=== PATIENT | female | born 1965 | race Two or more races ===

== ENCOUNTER 2016-09-18 06:46 | Inpatient (IN) | payer MEDICAID, OTHER ==
[~2016-09-18] VITALS: Ht 157.5 cm; Wt 80.1 kg
[2016-09-18 07:24] LABS: Basophils # (auto) 0 uL; Basophils % (auto) 0.6 % (0.0-2.0); Eosinophils # (auto) 0.2 uL; Eosinophils % (auto) 2.3 % (0.0-7.0); Hematocrit 43.2 % (36.0-46.0); Hemoglobin 14.5 g/dL (12.2-16.2); Lymphocytes # (auto) 1.7 uL; Lymphocytes % (auto) 23.2 % (10.0-50.0); Mean Corpuscular Hgb Conc. 33.6 g/dL (32.0-36.0); Mean Corpuscular Volume 89.5 fL (80.0-100.0); Mean Platelet Volume 8.1 fL (7.4-10.4); Monocytes # (auto) 0.3 uL; Monocytes % (auto) 4.2 % (0.0-12.0); Neutrophils # (auto) 5.2 uL; Neutrophils % (auto) 69.7 % (37.0-80.0); Platelet Count (auto) 279 10^3/uL (140-450); White Blood Cell 7.5 10^3/uL (4.4-10.8)
[2016-09-18 07:45] LABS: Albumin 3.8 g/dL (3.4-5.0); BUN/Creatinine Ratio 16.3; Blood Urea Nitrogen 16 mg/dL (7-18); Chloride 106 mmol/L (98-107); GFR African American 77 mL/min; GFR Non-African American 63 mL/min; Glucose 109 mg/dL (74-106); Magnesium 2.1 mg/dL (1.6-2.6); Potassium 3.8 mmol/L (3.5-5.1); Sodium 140 mmol/L (136-145)
[2016-09-18 07:49] LABS: INR 0.97 (0.9-1.15); Partial Thromboplastin Time 26.4 sec (22.64-33.71)
[2016-09-18 07:50] LABS: Alkaline Phosphatase 142 U/L (45-117); Anion Gap 11 (5-15); Aspartate Aminotransferase 24 U/L (15-37); Bilirubin, Total 0.4 mg/dL (0.2-1.0); Carbon Dioxide 23 mmol/L (21-32); Total Protein 7.5 g/dL (6.4-8.2)
[2016-09-18 09:27] LABS: Urine Bilirubin Negative (Negative); Urine Color Yellow (Yellow); Urine Glucose Normal (Normal); Urine Ketone Negative (Negative); Urine Nitrite Negative (Negative); Urine RBC 10 /hpf (0 - 4); Urine Squamous Epithelial Cell FEW /hpf (<5); Urine Urobilinogen Normal (Negative); Urine pH 5.5 (5.0-8.0)
[2016-09-18 09:33] LABS: Urine Blood 1+ /uL (Negative)
[2016-09-18] MEDS ORDERED: ASPirin 81 mg TAB PO ONE ×2 (10:15→12:30)
[2016-09-18] MEDS ORDERED: LORazepam 0.5 MG TAB PO PRN (12:15)
[2016-09-18] MEDS ORDERED: PROMETHAZINE HCL 25 MG/ML 1ML IV PRN (12:15)
[2016-09-18] MEDS ORDERED: ACETAMINOPHEN 500 MG TAB PO PRN (12:15)
[2016-09-18] MEDS ORDERED: LACTULOSE 20Gm/30ML SOLN PO PRN (12:15)
[2016-09-18] MEDS ORDERED: MORPHINE SULF INJ 2 MG/ML SYRINGE 1ML IV PRN ×2 (12:15)
[2016-09-18] MEDS ORDERED: NITROGLYCERIN 0.4 MG SL TAB SL PRN (12:15)
[2016-09-18] MEDS ORDERED: TEMAZEPAM 15 MG CAP PO PRN (12:15)
[2016-09-18] MEDS ORDERED: NITROGLYCERIN 0.2MG/HR TOPICAL PATCH TD ONE (12:30)
[2016-09-18] MEDS: SODIUM CHLORIDE 0.9% 1,000 ML IV SCH ×3 (12:43→18:03)
[2016-09-18] MEDS ORDERED: POTA10TA51 PO (14:03)
[2016-09-18] MEDS ORDERED: PNEUMOCOCCAL VACC POLYS 25 MCG/0.5 ML VIAL IM ONE ×2 (14:30→22:00)
[2016-09-18] MEDS ORDERED: INFLUENZA QUAD 2016-2017 0.5 ML SYRG IM ONE ×2 (14:30→22:00)
[2016-09-18] MEDS: HYDROcodone-ACET 5/325MG TAB PO PRN ×2 (15:20→21:54)
[2016-09-18 16:25] VITALS: BP 108/72
[2016-09-18 18:44] VITALS: BP 108/72
[2016-09-18 20:09] LABS: Amylase 53 U/L (25-115)
[2016-09-18 20:18] LABS: Temperature: 22.9 C (20.0-25.0)
[2016-09-18 21:30] VITALS: BP 98/56
[2016-09-18] MEDS: ATORVASTATIN 20 MG TAB PO SCH (21:54)
[2016-09-18] MEDS: FAMOTIDINE 20 MG TAB PO SCH (21:54)
[2016-09-18] MEDS: METOPROLOL TARTRATE 25 MG TAB PO SCH (21:55)
[2016-09-19 04:30] VITALS: BP 92/53
[2016-09-19] MEDS: SODIUM CHLORIDE 0.9% 1,000 ML IV SCH (05:10)
[2016-09-19] MEDS: HYDROcodone-ACET 5/325MG TAB PO PRN ×3 (06:16→20:41)
[2016-09-19 06:45] LABS: Cholesterol 204 mg/dL (<200); HDL Cholesterol 49 mg/dL (40-59); LDL Cholesterol 135 mg/dL (<100); Triglycerides 196 mg/dL (<150)
[2016-09-19 07:17] LABS: Urine Bilirubin Negative (Negative); Urine Blood TRACE /uL (Negative); Urine Color Yellow (Yellow); Urine Glucose Normal (Normal); Urine Ketone Negative (Negative); Urine Mucus FEW (None Seen); Urine Nitrite Negative (Negative); Urine RBC 1 /hpf (0 - 4); Urine Squamous Epithelial Cell FEW /hpf (<5); Urine Urobilinogen Normal (Negative); Urine pH 5.5 (5.0-8.0)
[2016-09-19 09:00] VITALS: BP 98/57
[2016-09-19] MEDS: METOPROLOL TARTRATE 25 MG TAB PO SCH ×2 (09:01→21:43)
[2016-09-19] MEDS: FAMOTIDINE 20 MG TAB PO SCH ×2 (09:15→21:43)
[2016-09-19] MEDS: ASPirin 81 mg TAB PO SCH (09:15)
[2016-09-19] MEDS ORDERED: NITROGLYCERIN 0.2MG/HR TOPICAL PATCH TD SCH (10:00)
[2016-09-19 13:00] VITALS: BP 95/56
[2016-09-19 16:44] VITALS: BP 102/59
[2016-09-19] MEDS: ATORVASTATIN 20 MG TAB PO SCH (21:42)
[2016-09-19 22:00] VITALS: BP 104/61
[2016-09-20] VITALS (7 sets, daily range): BP systolic 100–138; BP diastolic 52–77
[2016-09-20] MEDS: METOPROLOL TARTRATE 25 MG TAB PO SCH ×2 (10:00→21:39)
[2016-09-20] MEDS: FAMOTIDINE 20 MG TAB PO SCH ×2 (10:03→21:38)
[2016-09-20] MEDS: ASPirin 81 mg TAB PO SCH (10:03)
[2016-09-20] MEDS: HYDROcodone-ACET 5/325MG TAB PO PRN (10:04)
[2016-09-20] MEDS ORDERED: HYDROcodone-ACET 5/325MG TAB PO PRN (16:15)
[2016-09-20] MEDS: ATORVASTATIN 20 MG TAB PO SCH (21:38)
[2016-09-21] VITALS (7 sets, daily range): BP systolic 92–110; BP diastolic 59–68
[2016-09-21] MEDS: FAMOTIDINE 20 MG TAB PO SCH (10:10)
[2016-09-21] MEDS: ASPirin 81 mg TAB PO SCH (10:11)
[2016-09-21] MEDS: METOPROLOL TARTRATE 25 MG TAB PO SCH ×2 (10:11→21:51)
[2016-09-21] MEDS ORDERED: PANTOPRAZOLE 40 MG TAB PO ONE (13:00)
[2016-09-21] MEDS: ATORVASTATIN 20 MG TAB PO SCH (21:50)
[2016-09-21] MEDS: PANTOPRAZOLE 40 MG TAB PO SCH (21:51)
[2016-09-22 05:00] VITALS: BP 88/68
[2016-09-22 08:00] VITALS: BP 100/63
[2016-09-22] MEDS ORDERED: LIDOCAINE VISCOUS 2% 15ML UD ONE (08:26)
[2016-09-22] MEDS ORDERED: SODIUM CHLORIDE LOCK 10 ML ONE (08:26)
[2016-09-22] MEDS ORDERED: diphenhdrAMINE HCL 50 MG/1 ML VL ONE (08:26)
[2016-09-22] MEDS ORDERED: PANT40T PO (08:52)
[2016-09-22 08:54] VITALS: BP 113/64
[2016-09-22] MEDS: ASPirin 81 mg TAB PO SCH (10:00)
[2016-09-22] MEDS: PANTOPRAZOLE 40 MG TAB PO SCH (10:00)
[2016-09-22 10:26] VITALS: BP 113/64
[2016-09-22] MEDS: fentaNYL CITRATE 100 MCG/2 ML VL ONE ×2 (12:04→12:07)
[2016-09-22] MEDS: MIDAZOLAM HCL 5 MG/ML-1ML VIAL ONE ×2 (12:04→12:07)
[2016-09-22 13:00] VITALS: BP 107/78
[2016-09-22 17:04] VITALS: BP 115/70
== END 2016-09-22 15:48 | disposition home or self-care (01) | DRG 241 ==
LOC: ER 06:47 → TELE 06:48 → TELE-E-ADS 13:30 → TELE-WESTW 16:10 → WEST WING 09-20 04:37
PROVIDERS: ADMIT Internal Medicine; ATTEND Internal Medicine
PROC: 0DB68ZX Excision of Stomach, Via Natural or Artificial Opening Endoscopic, Diagnostic (ICD-10-PCS; principal; 2016-09-22 11:45)
DX: K29.80 Duodenitis without bleeding (principal); K76.0 Fatty (change of) liver, not elsewhere classified; I95.9 Hypotension, unspecified; G62.9 Polyneuropathy, unspecified; M48.02 Spinal stenosis, cervical region; M94.0 Chondrocostal junction syndrome [Tietze]; F12.10 Cannabis abuse, uncomplicated; K57.90 Diverticulosis of intestine, part unspecified, without perforation or abscess without bleeding; F17.210 Nicotine dependence, cigarettes, uncomplicated; G89.29 Other chronic pain; M47.22 Other spondylosis with radiculopathy, cervical region; K21.9 Gastro-esophageal reflux disease without esophagitis; R20.8 Other disturbances of skin sensation; B96.81 Helicobacter pylori [H. pylori] as the cause of diseases classified elsewhere; K29.50 Unspecified chronic gastritis without bleeding; Z79.82 Long term (current) use of aspirin; Z79.899 Other long term (current) drug therapy; Z80.0 Family history of malignant neoplasm of digestive organs; Z82.0 Family history of epilepsy and other diseases of the nervous system; Z82.3 Family history of stroke; Z82.49 Family history of ischemic heart disease and other diseases of the circulatory system; Z83.3 Family history of diabetes mellitus; Z23 Encounter for immunization
CPT/HCPCS: 36415; 43239; 70450; 70551; 71020; 72141; 74176; 80053; 80061; 81001; 81025; 82150; 82270; 82378; 82550; 82607; 82746; 83690; 83735; 84443; 84484; 85025; 85379; 85610; 85652; 85730; 86141; 93005; 93306; G0434; J2250

== ENCOUNTER 2016-12-24 11:13 | Emergency (ER) | payer OTHER ==
[~2016-12-24] VITALS: Ht 157.5 cm; Wt 73.9 kg
[~2016-12-24 11:13] MED LIST: PANT40T PO; POTA10TA51 PO
[2016-12-24 11:22] VITALS: BP 153/81
== END 2016-12-24 14:14 | disposition home or self-care (01) ==
LOC: ER 11:13
DX: S93.401A Sprain of unspecified ligament of right ankle, initial encounter (principal); S09.90XA Unspecified injury of head, initial encounter; R42 Dizziness and giddiness; F17.210 Nicotine dependence, cigarettes, uncomplicated; Z79.899 Other long term (current) drug therapy; M19.90 Unspecified osteoarthritis, unspecified site; W01.0XXA Fall on same level from slipping, tripping and stumbling without subsequent striking against object, initial encounter; Y93.89 Activity, other specified; Y92.89 Other specified places as the place of occurrence of the external cause; Y99.8 Other external cause status
CPT/HCPCS: 70450; 73610

== ENCOUNTER 2019-06-29 10:31 | Emergency (ER) | payer OTHER ==
[~2019-06-29] VITALS: Ht 157.5 cm; Wt 71.7 kg
[2019-06-29] MEDS: KETOROLAC TROMETH 30 MG/ML 1ML VIAL IV ONE (11:02)
[2019-06-29] MEDS: SODIUM CHLORIDE 0.9% 1,000 ML IVB ONE (11:03)
[2019-06-29 11:19] LABS: Basophils # (auto) 0.1 uL; Basophils % (auto) 1.1 % (0.0-2.0); Eosinophils # (auto) 0 uL; Eosinophils % (auto) 0.8 % (0.0-7.0); Hematocrit 42.9 % (36.0-46.0); Hemoglobin 14.2 g/dL (12.2-16.2); Lymphocytes # (auto) 2.3 uL; Lymphocytes % (auto) 43.7 % (10.0-50.0); Mean Corpuscular Hemoglobin 30.6 pg (28.0-32.0); Mean Corpuscular Volume 92.6 fL (80.0-100.0); Monocytes # (auto) 0.3 uL; Monocytes % (auto) 5.7 % (0.0-12.0); Neutrophils # (auto) 2.5 uL; Neutrophils % (auto) 48.7 % (37.0-80.0); Nucleated Red Blood Cells % 0.1 %; Platelet Count (auto) 263 10^3/uL (140-450); Red Blood Cells 4.63 10^6/uL (4.0-5.20); Red Cell Distribution Width 12.9 % (11.8-14.3); White Blood Cell 5.2 10^3/uL (4.4-10.8)
[2019-06-29 11:50] LABS: BUN/Creatinine Ratio 12.5; Calcium 8.6 mg/dL (8.5-10.1); Potassium 3.6 mmol/L (3.5-5.1)
[2019-06-29 11:55] LABS: Albumin 4.3 g/dL (3.4-5.0); Bilirubin, Total 0.4 mg/dL (0.2-1.0); Total Protein 7.7 g/dL (6.4-8.2)
[2019-06-29 12:01] VITALS: BP 117/85
== END 2019-06-29 13:10 | disposition home or self-care (01) ==
LOC: ER 10:31
DX: R10.12 Left upper quadrant pain (principal); R11.0 Nausea
CPT/HCPCS: 36415; 74176; 80053; 83690; 85025; 96374; 99284; J1885; J7030

== ENCOUNTER 2019-09-22 13:28 | Emergency (ER) | payer OTHER ==
[~2019-09-22] VITALS: Ht 157.5 cm; Wt 63.5 kg
[2019-09-22 13:41] VITALS: BP 113/73
[2019-09-22] MEDS ORDERED: KETOROLAC TROMETH 60MG/2ML VIAL IM ONE (15:15)
== END 2019-09-22 15:23 | disposition home or self-care (01) ==
LOC: ER 13:28
DX: S16.1XXA Strain of muscle, fascia and tendon at neck level, initial encounter (principal); M51.37 Other intervertebral disc degeneration, lumbosacral region; F17.210 Nicotine dependence, cigarettes, uncomplicated; V43.52XA Car driver injured in collision with other type car in traffic accident, initial encounter; Y93.89 Activity, other specified; Y92.488 Other paved roadways as the place of occurrence of the external cause; Y99.8 Other external cause status
CPT/HCPCS: 72040; 72100; 96372; 99284; J1885

== ENCOUNTER 2020-09-12 06:01 | Inpatient (IN) | payer OTHER ==
[~2020-09-12] VITALS: Ht 157.5 cm; Wt 69.0 kg
[2020-09-12] MEDS ORDERED: ACETAMINOPHEN 325 MG TAB PO ONE (06:15)
[2020-09-12 06:37] LABS: Basophils # (auto) 0.1 10 ^3/uL (0-0.2); Basophils % (auto) 0.6 % (0.0-2.0); Eosinophils # (auto) 0 10 ^3/uL (0-0.8); Eosinophils % (auto) 0.3 % (0.0-7.0); Hematocrit 42.3 % (36.0-46.0); Hemoglobin 14.7 g/dL (12.2-16.2); Lymphocytes # (auto) 0.8 10 ^3/uL (0.4-5.4); Lymphocytes % (auto) 7.6 % (10.0-50.0); Mean Corpuscular Hemoglobin 31.9 pg (28.0-32.0); Mean Corpuscular Hgb Conc. 34.7 g/dL (32.0-36.0); Mean Corpuscular Volume 91.8 fL (80.0-100.0); Monocytes # (auto) 0.5 10 ^3/uL (0-1.3); Monocytes % (auto) 4.3 % (0.0-12.0); Neutrophils # (auto) 9.7 10 ^3/uL (1.6-8.6); Neutrophils % (auto) 87.2 % (37.0-80.0); Nucleated Red Blood Cells % 0.3 %; Platelet Count (auto) 207 10^3/uL (140-450); Red Blood Cells 4.61 10^6/uL (4.0-5.20); Red Cell Distribution Width 12.8 % (11.8-14.3); White Blood Cell 11.1 10^3/uL (4.4-10.8)
[2020-09-12 07:08] LABS: Albumin 3.5 g/dL (3.4-5.0); Calcium 9.1 mg/dL (8.5-10.1); Potassium 3.7 mmol/L (3.5-5.1)
[2020-09-12 07:13] LABS: BUN/Creatinine Ratio 11.1; Bilirubin, Total 0.7 mg/dL (0.2-1.0); Total Protein 8.1 g/dL (6.4-8.2)
[2020-09-12] MEDS ORDERED: cefTRIAXone 1GM/50ML D5W 50 ML IV ONE (07:15)
[2020-09-12] MEDS ORDERED: SODIUM CHLORIDE 0.9% 1,000 ML IV ONE ×2 (07:15)
[2020-09-12] MEDS ORDERED: AZITHROMYCIN 500MG/ 250ML 250 ML IV ONE (07:15)
[2020-09-12] MEDS ORDERED: IBUPROFEN 800 MG TAB PO ONE (09:15)
[2020-09-12 09:27] LABS: Urine Amorphous Crystal MOD /hpf (None Seen); Urine Bacteria NONE SEEN /hpf (None Seen); Urine Blood 3+ /uL (Negative); Urine Budding Yeast OCCASIONAL /hpf (None Seen); Urine Mucus FEW (None Seen); Urine WBC 3 /hpf (0 - 5)
[2020-09-12] MEDS ORDERED: ALBUTEROL SULF 2.5 MG/0.5ML(0.5%) NEB SOLN NEB PRN (10:45)
[2020-09-12] MEDS ORDERED: NITROGLYCERIN 0.4 MG SL TAB SL PRN (10:45)
[2020-09-12] MEDS ORDERED: PROMETHAZINE HCL 25 MG/ML 1ML IV PRN (10:45)
[2020-09-12] MEDS ORDERED: MORPHINE SULF INJ 2 MG/ML SYRINGE 1ML IV PRN (10:45)
[2020-09-12] MEDS ORDERED: LACTULOSE 20Gm/30ML SOLN PO PRN (10:45)
[2020-09-12] MEDS ORDERED: LORazepam 0.5 MG TAB PO PRN (10:45)
[2020-09-12 11:30] VITALS: BP 101/58
[2020-09-12 12:14] VITALS: BP 117/79
[2020-09-12] MEDS: SODIUM CHLORIDE 0.9% 1,000 ML IV SCH (12:34)
[2020-09-12 12:48] VITALS: BP 101/58
[2020-09-12] MEDS: ACETAMINOPHEN 500 MG TAB PO PRN ×2 (14:08→20:25)
[2020-09-12 17:00] VITALS: BP 118/74
[2020-09-12 20:00] VITALS: BP 118/75
[2020-09-12 22:00] VITALS: BP 118/75
[2020-09-12] MEDS: FAMOTIDINE 20 MG TAB PO SCH (22:48)
[2020-09-12] MEDS: MORPHINE SULF INJ 2 MG/ML SYRINGE 1ML IV PRN (22:49)
[2020-09-13] VITALS (9 sets, daily range): BP systolic 99–141; BP diastolic 68–94
[2020-09-13] MEDS: SODIUM CHLORIDE 0.9% 1,000 ML IV SCH ×2 (00:35→05:15)
[2020-09-13] MEDS: ACETAMINOPHEN 500 MG TAB PO PRN ×2 (02:29→18:30)
[2020-09-13 06:14] LABS: Basophils # (auto) 0 10 ^3/uL (0-0.2); Basophils % (auto) 0.5 % (0.0-2.0); Eosinophils # (auto) 0.1 10 ^3/uL (0-0.8); Eosinophils % (auto) 0.8 % (0.0-7.0); Hematocrit 38.2 % (36.0-46.0); Lymphocytes # (auto) 1.3 10 ^3/uL (0.4-5.4); Lymphocytes % (auto) 17.7 % (10.0-50.0); Mean Corpuscular Hemoglobin 31.4 pg (28.0-32.0); Mean Corpuscular Hgb Conc. 34.1 g/dL (32.0-36.0); Mean Corpuscular Volume 92.2 fL (80.0-100.0); Monocytes # (auto) 0.4 10 ^3/uL (0-1.3); Monocytes % (auto) 5.2 % (0.0-12.0); Neutrophils # (auto) 5.4 10 ^3/uL (1.6-8.6); Neutrophils % (auto) 75.8 % (37.0-80.0); Nucleated Red Blood Cells % 0.1 %; Platelet Count (auto) 199 10^3/uL (140-450); Red Blood Cells 4.14 10^6/uL (4.0-5.20); Red Cell Distribution Width 12.8 % (11.8-14.3); White Blood Cell 7.2 10^3/uL (4.4-10.8)
[2020-09-13 06:31] LABS: Potassium 3.1 mmol/L (3.5-5.1)
[2020-09-13 06:41] LABS: Albumin 2.9 g/dL (3.4-5.0); BUN/Creatinine Ratio 9.1; Bilirubin, Total 0.6 mg/dL (0.2-1.0); Calcium 8.5 mg/dL (8.5-10.1); Total Protein 6.9 g/dL (6.4-8.2)
[2020-09-13] MEDS: cefTRIAXone 1GM/50ML D5W 50 ML IV SCH (09:26)
[2020-09-13] MEDS: ENOXAPARIN SOD 40 MG/0.4 ML SYRINGE SC SCH (09:39)
[2020-09-13] MEDS: AZITHROMYCIN 500MG/ 250ML 250 ML IV SCH (09:39)
[2020-09-13] MEDS: FAMOTIDINE 20 MG TAB PO SCH (09:39)
[2020-09-13] MEDS ORDERED: ASCORBIC ACID 500 MG TAB PO ONE (10:45)
[2020-09-13] MEDS ORDERED: ZINC SULFATE 220mg CAP or TAB PO ONE (10:45)
[2020-09-13] MEDS ORDERED: CHOLECALCIFEROL (VITD3) 2,000 UNIT CAP/TAB PO ONE (10:45)
[2020-09-13] MEDS ORDERED: diphenhdrAMINE HCL 50 MG/1 ML VL IV PRN (11:30)
[2020-09-13] MEDS ORDERED: guaiFENesin-DM 100/10mg/5ml SYR PO PRN (11:30)
[2020-09-13] MEDS ORDERED: guaiFENesin-DM 100/10mg/5ml SYR PO ONE (11:30)
[2020-09-13] MEDS: traMADol HCL 50 MG TAB PO PRN (11:33)
[2020-09-13 13:50] LABS: Alcohol, Urine < 3.0 mg/dL (0-10); Amphetamine Screen, Urine NEGATIVE (NEGATIVE); Barbiturate Scree,Urine NEGATIVE (NEGATIVE); Benzodiazephine Screen, Urine NEGATIVE (NEGATIVE); Cannabinoid Screen, Urine POSITIVE (NEGATIVE); Cocaine Screen, Urine NEGATIVE (NEGATIVE); Opiate Scree,Urine NEGATIVE (NEGATIVE); Phencyclidine Screen, Urine NEGATIVE (NEGATIVE)
[2020-09-13] MEDS: BUDESONIDE (INHALATION) 180 MCG IH IN SCH (19:30)
[2020-09-13] MEDS: ALBUTEROL SULF HFA 90MCG INH 200DOSE IN PRN (19:30)
[2020-09-13] MEDS: ASCORBIC ACID 500 MG TAB PO SCH (22:18)
[2020-09-14 00:59] VITALS: BP 136/76
[2020-09-14] MEDS: MORPHINE SULF INJ 2 MG/ML SYRINGE 1ML IV PRN (01:24)
[2020-09-14] MEDS: ACETAMINOPHEN 500 MG TAB PO PRN ×2 (03:12→16:36)
[2020-09-14 05:00] VITALS: BP 121/76
[2020-09-14] MEDS: BUDESONIDE (INHALATION) 180 MCG IH IN SCH ×2 (06:59→19:05)
[2020-09-14] MEDS: ALBUTEROL SULF HFA 90MCG INH 200DOSE IN PRN ×2 (06:59→19:05)
[2020-09-14] MEDS: traMADol HCL 50 MG TAB PO PRN (07:58)
[2020-09-14 08:21] VITALS: BP 105/74
[2020-09-14] MEDS: cefTRIAXone 1GM/50ML D5W 50 ML IV SCH (09:36)
[2020-09-14] MEDS: ZINC SULFATE 220mg CAP or TAB PO SCH (09:38)
[2020-09-14] MEDS: CHOLECALCIFEROL (VITD3) 2,000 UNIT CAP/TAB PO SCH (09:39)
[2020-09-14] MEDS: ASCORBIC ACID 500 MG TAB PO SCH ×2 (09:39→21:47)
[2020-09-14] MEDS: FAMOTIDINE 20 MG TAB PO SCH (09:39)
[2020-09-14] MEDS: AZITHROMYCIN 500MG/ 250ML 250 ML IV SCH (09:40)
[2020-09-14] MEDS: ENOXAPARIN SOD 40 MG/0.4 ML SYRINGE SC SCH (09:40)
[2020-09-14] MEDS ORDERED: KETOROLAC TROMETH 30 MG/ML 1ML VIAL IV PRN (10:00)
[2020-09-14] MEDS ORDERED: KETOROLAC TROMETH 30 MG/ML 1ML VIAL IV ONE (10:00)
[2020-09-14] MEDS: AZITHROMYCIN 250 MG TAB PO SCH (10:07)
[2020-09-14 12:49] VITALS: BP 103/73
[2020-09-14 17:00] VITALS: BP 101/69
[2020-09-14 21:48] VITALS: BP 109/60
[2020-09-15 05:03] VITALS: BP 99/63
[2020-09-15] MEDS: BUDESONIDE (INHALATION) 180 MCG IH IN SCH (06:25)
[2020-09-15] MEDS: ALBUTEROL SULF HFA 90MCG INH 200DOSE IN PRN (06:25)
[2020-09-15 09:00] VITALS: BP 109/86
[2020-09-15] MEDS: ZINC SULFATE 220mg CAP or TAB PO SCH (09:15)
[2020-09-15] MEDS: ASCORBIC ACID 500 MG TAB PO SCH (09:15)
[2020-09-15] MEDS: cefTRIAXone 1GM/50ML D5W 50 ML IV SCH (09:15)
[2020-09-15] MEDS: FAMOTIDINE 20 MG TAB PO SCH (09:15)
[2020-09-15] MEDS: ENOXAPARIN SOD 40 MG/0.4 ML SYRINGE SC SCH (09:16)
[2020-09-15] MEDS: CHOLECALCIFEROL (VITD3) 2,000 UNIT CAP/TAB PO SCH (09:16)
[2020-09-15] MEDS: AZITHROMYCIN 250 MG TAB PO SCH (09:16)
[2020-09-15] MEDS ORDERED: ALBUAER3 IN (11:38)
[2020-09-15] MEDS ORDERED: ZINC220T6 PO (11:38)
[2020-09-15] MEDS ORDERED: CHOL1CAP47 PO (11:38)
[2020-09-15] MEDS ORDERED: AZIT500T66 PO (11:38)
[2020-09-15] MEDS ORDERED: IBUP400T22 PO (11:38)
[2020-09-15] MEDS ORDERED: ASCO500T11 PO (11:38)
[2020-09-15] MEDS ORDERED: FAMO-12 PO (11:38)
[2020-09-15 13:00] VITALS: BP 96/65
== END 2020-09-15 18:00 | disposition home or self-care (01) | DRG 137 ==
LOC: ER 06:01 → TELE 06:02 → TELE-EAST 11:37
PROVIDERS: ADMIT Internal Medicine; ATTEND Internal Medicine
PROC: XW13325 Transfusion of Convalescent Plasma (Nonautologous) into Peripheral Vein, Percutaneous Approach, New Technology Group 5 (ICD-10-PCS; principal; 2020-09-13)
DX: U07.1 COVID-19 (principal); N17.0 Acute kidney failure with tubular necrosis; J12.82 Pneumonia due to coronavirus disease 2019; E44.1 Mild protein-calorie malnutrition; F12.90 Cannabis use, unspecified, uncomplicated; F17.210 Nicotine dependence, cigarettes, uncomplicated; R73.9 Hyperglycemia, unspecified; F41.9 Anxiety disorder, unspecified; M54.9 Dorsalgia, unspecified; D89.839 Cytokine release syndrome, grade unspecified; Z80.0 Family history of malignant neoplasm of digestive organs; Z82.0 Family history of epilepsy and other diseases of the nervous system; Z82.49 Family history of ischemic heart disease and other diseases of the circulatory system; Z82.3 Family history of stroke; Z83.3 Family history of diabetes mellitus; Z87.01 Personal history of pneumonia (recurrent); R65.10 Systemic inflammatory response syndrome (SIRS) of non-infectious origin without acute organ dysfunction; Z68.27 Body mass index [BMI] 27.0-27.9, adult
CPT/HCPCS: 36415; 71045; 76775; 80053; 80307; 81001; 83036; 83605; 85025; 86850; 86900; 86901; 87040; 87070; 87086; 87205; 87426; 87804; 94640; 96365; 96367; G0378; J0696; J1885